=== PATIENT | female | born 1975 | race Caucasian/White ===

== ENCOUNTER 2019-11-04 20:23 | Emergency (ER) | payer MEDICAID ==
[~2019-11-04] VITALS: Ht 167.6 cm; Wt 65.8 kg
[2019-11-04 20:29] VITALS: Ht 167.6 cm; Wt 65.8 kg
[2019-11-04 22:04] VITALS: BP 104/70
== END 2019-11-04 22:36 | disposition home or self-care (01) ==
LOC: ED 20:23
DX: F41.9 Anxiety disorder, unspecified (principal); F32.9 Major depressive disorder, single episode, unspecified; G10 Huntington's disease; Z88.2 Allergy status to sulfonamides; Z98.890 Other specified postprocedural states
CPT/HCPCS: J2060

== ENCOUNTER 2019-12-25 11:53 | Emergency (ER) | payer MEDICAID ==
[~2019-12-25] VITALS: Ht 167.6 cm; Wt 59.0 kg
[2019-12-25 13:01] VITALS: Ht 167.6 cm; Wt 59.0 kg
[2019-12-25 13:46] LABS: BASOPHIL % 0.6 % (0-2)
[2019-12-25 13:48] LABS: PLATELET COUNT 418 x10^3mcL (130-400); RED CELL DISTRIBUTION WIDTH 19.3 % (11.5-14.5)
[2019-12-25 14:24] LABS: CALCIUM 8.7 mg/dL (8.5-10.1); CARBON DIOXIDE 33.1 mmol/L (21-32); CHLORIDE SERUM 101 mmol/L (98-107); CREATININE SERUM 0.7 mg/dL (0.6-1.0); GFR1 > 60 mL/min; GLUCOSE SERUM 90 mg/dL (74-106); POTASSIUM SERUM 3.5 mmol/L (3.5-5.1); SODIUM SERUM 137 mmol/L (136-145)
[2019-12-25 14:28] LABS: ALBUMIN 3.9 g/dL (3.4-5.0); ALKALINE PHOSPHATASE 60 U/L (46-116); ALT/SGPT 19 U/L (14-59); AST/SGOT 17 U/L (15-37); BILIRUBIN TOTAL 0.37 mg/dL (0.20-1.00)
[2019-12-25 14:30] LABS: AMPHETAMINE QUAL UR NONE DETECTED (See below)
[2019-12-25 15:08] VITALS: BP 137/93
== END 2019-12-25 15:08 | disposition home or self-care (01) ==
LOC: ED 11:53
PROVIDERS: Emergency Medicine
DX: F41.9 Anxiety disorder, unspecified (principal); D64.9 Anemia, unspecified; Z02.79 Encounter for issue of other medical certificate; Z20.828 Contact with and (suspected) exposure to other viral communicable diseases; Z98.890 Other specified postprocedural states; Z88.2 Allergy status to sulfonamides
CPT/HCPCS: G0480; U0003-CS

== ENCOUNTER 2020-06-08 13:24 | Inpatient (IN) | payer OTHER ==
[~2020-06-08] VITALS: Ht 175.3 cm; Wt 51.9 kg
[2020-06-08 13:25] VITALS: Ht 175.3 cm; Wt 51.9 kg
--- NOTE | 2020-06-08 13:27 | NUR ---
PT BIBA [facility] AND [facility] D/T POSSIBLE OVERDOSE. PER PD, PT WAS HAVING AN ARGUMENT WITH FAMILY ABOUT HER PLACEMENT IN A SNF D/T HER BARRY'S DISEASE. PT STATED "I MIGHT WELL " AND LOCKED HERSELF IN HER ROOM. FAMILY MEMBERS HEARD PILLS BEING INGESTED. THE DOOR WAS KNOCKED DOWN AND FOUND AN OPEN, EMPTY BOTTLE OF LEXAPRO. FAMILY DOES NOT KNOW HOW MUCH LEXAPRO PILLS THE PT INGESTED. PT ARRIVED TO ED ALERTED, UNCOOPERATIVE, AND ONLY ALERT TO SELF, GCS10. PT APPEARED ANXIOUS AND MOANING INCOMPREHENSIBLE WORDS. PT WAS WRITHING ALL OVER THE GURNEY. NOTED PT TO BE TACHYCARDIC. RESPIRATIONS WNL AND E/U.
--- NOTE | 2020-06-08 13:30 | NUR ---
PT PLACED ON RESTRAINTS X4 EXTREMITIES D/T ANXIETY, ALOC, AT RISK FOR FALLS. PT ATTEMPTING TO CLIMB OVER GURNEY RAILS. PT ONLY ALERT TO SELF, GCS10
--- NOTE | 2020-06-08 13:46 | NUR ---
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 5150 FOR DTS WRITTEN AT BEDSIDE. MD MULLER
--- NOTE | 2020-06-08 14:01 | NUR ---
CONTACTED POISON CONTROL. PER VELMA, MINIMUM OBSERVATION TIME IS 12HRS. 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 OK TO GIVE BENZODIAZEPINES FOR AGITATION.
[2020-06-08 14:33] LABS: microscopic required? NO
[2020-06-08 14:59] LABS: urine erythrocyte NEGATIVE (NEGATIVE)
[2020-06-08 15:03] LABS: BASOPHIL % 0.8 % (0.2-1.3); PLATELET COUNT 233 x10^3mcL (179-408)
[2020-06-08 15:10] LABS: RED CELL DISTRIBUTION WIDTH 20.4 % (12.3-17.7)
[2020-06-08 15:29] LABS: AMPHETAMINE QUAL UR NONE DETECTED (See below)
--- NOTE | 2020-06-08 15:31 | NUR ---
O2 SATURATION CONTINUES TO STAY IN HIGH 80'S, INCREASED O2 TO 5L VIA NC
[2020-06-08 15:32] LABS: ALBUMIN 3.6 g/dL (3.4-5.0); ALKALINE PHOSPHATASE 72 U/L (46-116); ALT/SGPT 79 U/L (14-59); AST/SGOT 34 U/L (15-37); BILIRUBIN TOTAL 0.5 mg/dL (0.20-1.00); CALCIUM 8.9 mg/dL (8.5-10.1); CARBON DIOXIDE 26.5 mmol/L (21-32); CHLORIDE SERUM 103 mmol/L (98-107); CREATININE SERUM 0.8 mg/dL (0.6-1.0); GFR1 > 60 mL/min; GLUCOSE SERUM 124 mg/dL (74-106); POTASSIUM SERUM 3.4 mmol/L (3.5-5.1); SODIUM SERUM 140 mmol/L (136-145); TOTAL PROTEIN, SERUM 7.2 g/dL (6.4-8.2)
--- NOTE | 2020-06-08 15:46 | NUR ---
PT ASLEEP, COOPERATIVE, RESP EU, IN NO ACUTE DISTRESS. TIFFANIE LOWER EXTREMITIES RESTRAINTS REMOVED.
--- NOTE | 2020-06-08 17:25 | NUR ---
RESTRAINTS PLACED BACK ON BILATERAL LOWER EXTREMITIES D/T PT STARTING TO BECOME RESTLESS AND SLAMMING HER LEGS AGAINST THE BED RAILS. PT MENTATION IS UNCHANGED. PT MOANS TO VERBAL STIMULI
--- NOTE | 2020-06-08 19:15 | NUR ---
REPORT RECEIVED FROM RAJAN FARLEY TO ASSUME CARE FOR PT AT THIS TIME
--- NOTE | 2020-06-08 20:17 | NUR ---
PT IN GURNEY RESTING, EASY TO AROUSE. PT CONTINUES TO BE AGITATED, SITTING UP IN BED WITH RESTRAINTS STILL IN PLACE. PT ACTIVELY WRITHING IN BED AND TRYING TO GET OUT OF RESTRAINTS AND FALLING IN AND OUT OF SLEEP. PT TOLERATED ROCEPHIN INFUSION INTIATION WELL AND IS IN GURNEY RESTING. PT RESP E/U, SIDE RAILSX2, IN FULL VIEW OF NURSES STATION, AND BED IN LOWEST POSITION FOR SAFETY
--- NOTE | 2020-06-08 21:13 | NUR ---
PT IN [facility], ATTEMPTING TO SIT UP WITH RESTRAINTS ON, GRUNTING AND SHOUTING INTERMITTENTLY. AZITHROMAX INFUSION STARTED, PT TOLERATED WELL. PT IN [facility] RESTING, RESP E/U, IN AND OUT OF SLEEP. +PMSC ON ALL EXTREMITIES. PT DOES NOT RESPOND WHEN GREETED OR ASKING IF SHE NEEDS ANYTHING. PT IN [facility] AT LOWEST POSITION AND SIDE RAILS FOR SAFETY
--- NOTE | 2020-06-08 21:42 | NUR ---
MD BEING PAGED AT THIS TIME TO GET ORDER FOR INHALER CORRECTED FOR [facility] IS AVAILABLE TO VERIFY WELL GET ADDITIONAL ORDER FOR AGITATION FOR THE PT. PT HAS BEEN AGITATED AND WRESTING AROUND IN RESTRAINTS.
--- NOTE | 2020-06-08 21:50 | NUR ---
SPOKE WITH AND MD WHITE THAT HE WILL PUT IN THE ORDER FOR ALBUTEROL INCLUDING THE FREQUENCY AND ADD A PRN ORDER FOR PT AGITATION.
--- NOTE | 2020-06-08 21:55 | NUR ---
PT CONTINUES TO WRITHE IN BED GRUNTING AND YELLING INTERMITTENTLY. PT OCCLUDING INFUSION WHEN ATTEMPTING TO GET UP WITH HER RESTRAINTS ON, PT EDUCATED TO KEEP ARM STRAIGHT FOR AZITHROMAX TO INFUSE, BUT PT DOES NOT ANSWER. PT BED IN LOWEST POSITION, AND SIDE RAILSX2 FOR SAFETY. PT RESP E/U, AND NOT IN ACUTE DISTRESS
--- NOTE | 2020-06-08 23:15 | NUR ---
SPOKE WITH CHI FROM POISON CONTROL FOLLOWING UP ON PT STATUS. CHI STATES BIGGEST CONCERN FOR LEXAPRO OVERDOSE IS DELAYED QT PROLONGATION. STATES SHOULD KEEP PT FOR AT LEAST 12 HRS FOR OBSERVATION. CHI STATES IF PT VITALS SIGNS REMAINS STABLE AND EKG CONTINUES TO HAVE NO QT PROLONGATION PT WILL BE SAFE FROM DANGERS OF OVERDOSE. WILL CONTINUE TO MONITOR TO PT.
--- NOTE | 2020-06-08 23:47 | NUR ---
PT SEEN RITHING AROUND IN RESTRRAINTS PT WAS REORIENTED AND ASKED TO LAY BACK IN BED. PT LAYED BACK DOWN IN BED AND IS NOW RESTING LAYING SUPINE IN SEMI FOWLERS. WILL CONTINUE TO MONITOR PT.
--- NOTE | 2020-06-09 00:16 | NUR ---
PT IS SEEN ATTEMPTING TO SIT UP WHILE ON RESTRAINTS AND MOVING AROUND, FALLING IN AND OUT OF SLEEP. PT IN FULL VIEW OF NURSES STATION, RESP E/U, SIDE RAILSX2 AND GURNEY IN LOWEST POSITION FOR SAFETY
--- NOTE | 2020-06-09 00:31 | NUR ---
PT ASKED IF SHE'D LIKE HER PRN ORDER FOR ATIVAN. PT DECLINED.
--- NOTE | 2020-06-09 01:51 | NUR ---
PT CONTINUES TO TRY AND GET OUT OF HER RESTRAINTS INTERMITTENTLY AND FALLS IN AND OUT OF SLEEP. WILL CONTINUE TO WATCH PT AND ASSESS RESTRAINT NECESSITY
--- NOTE | 2020-06-09 03:29 | NUR ---
0327 VITAL SIGN INPUTTED BY ME, NOT JUSTINE FARLEY
--- NOTE | 2020-06-09 03:44 | NUR ---
PT IN GURNEY RESTING, EASY TO AROUSE. INFORMED PT THAT WE WILL REMOVE HER LOWER EXTREMITY RESTRAINTS TO ASSESS HER LEVEL OF COOPERATION AND TO ASSESS IF WE CAN COMPLETELY REMOVE ALL RESTRAINTS FOR PT. PT EXPRESSED UNDERSTANDING. PT NAD NOTED, RESP E/U, SIDE RAILSX2, AND BED IN LOWEST POSITION FOR SAFETY
--- NOTE | 2020-06-09 03:45 | NUR ---
ASKED PT IF SHE WOULD LIKE HER PRN ORDER OF ATIVAN AND THE PT REFUSED ATIVAN AGAIN
--- NOTE | 2020-06-09 03:46 | NUR ---
PT SPEAKING IN UNINTELLIGIBLE WORDS, ATTEMPTING TO MOVE HER ARMS AROUND. PT HAD BEEN KICKING EARLIER TODAY WHEN LOWER EXTREMITY RESTRAINTS WERE RELEASED TO ASSESS PT. SEIZURE PADS PLACED TO PROTECT PT IN THE EVENT THE PT BEGINS KICKING AGAIN.
--- NOTE | 2020-06-09 03:48 | NUR ---
PT BECOMING INCREASINGLY AGITATED AND MOVING AROUND IN BED. CONTINUING TO REMIND PT THAT SHE NEEDS TO LIE IN BED-- PT STOPS WRITHING AND LIES DOWN. AFTER AROUND 1-2 MINUTES, PT BEGINS ATTEMPTING TO MOVE HER ARMS AND SIT UP. PT IS NOT KICKING THE GURNEY RAILS AT THIS TIME. PT RESP E/U, BED IN LOWEST HEIGHT AND SIDE RAILSX2 FOR SAFETY
--- NOTE | 2020-06-09 03:53 | NUR ---
PT OFFERED ATIVAN TO HELP HER ANXIETY AND PT AGREED TO TAKING PO ATIVAN
--- NOTE | 2020-06-09 04:08 | NUR ---
PT IS SITTING UP, STRUGGLING, ATTEMPTING TO GET OUT OF HER RESTRAINTS AND SCREAMING. EIRC RN AT BEDSIDE REMINDING PT THAT SHE NEEDS TO REMAIN IN BED AND REORIENTING PT. PT IN FULL VIEW OF NURSES STATION, BED IN LOWEST POSITION, AND SIDE RAILSX2 FOR SAFETY
--- NOTE | 2020-06-09 04:13 | NUR ---
PT ACTIVELY TRYING TO GET OUT OF BED, YELLING, WITH HER LEGS THROUGH THE GURNEY RAILING. ERIK SCHULTZ AND MYSELF ASSISTED PT BACK TO POSITION OF COMFORT AND REAPPLIED BLE RESTRAINTS FOR SAFETY. PT EXPRESSED UNDERSTANDING AND COOPERATED WITH RESTRAINT APPLICATION. PT IS NOW IN BED RESTING SUPINE, RESP E/U, BED IN LOWEST POSITION, SIDE RAILSX2 FOR SAFETY
--- NOTE | 2020-06-09 05:05 | NUR ---
BILATERAL LEG RESTRAINTS REMOVED FROM PT. PT DECREASED AGITATION AT THIS TIME AND BEING COOPERATIVE. PT LAYING SUPINE IN GURNEY IN A POSITION OF COMFORT WITH EYES CLOSED. WILL CONTINUE TO MONITOR PT.
[2020-06-09 05:17] LABS: BASOPHIL % 0.5 % (0.2-1.3); PLATELET COUNT 227 x10^3mcL (179-408)
[2020-06-09 05:18] LABS: RED CELL DISTRIBUTION WIDTH 21.1 % (12.3-17.7)
--- NOTE | 2020-06-09 05:22 | NUR ---
PT SEEN AGITATED AND RITHING AROUND IN RESTRAINTS IN [facility]. THERAPEUTIC COMMUNICATION IMPLEMENTED AND PT WAS REORIENTED. PT STATED THAT SHE WOULD LIKE SOME SEVEN UP. PT WAS BROUGHT SEVEN UP BUT THEN REFUSED STATING IT TASTES BAD. PT AGREES TO LAY BACK DOWN IN [facility] AND STATED "JUST LET ME SLEEP."
[2020-06-09 05:41] LABS: ALKALINE PHOSPHATASE 68 U/L (46-116); ALT/SGPT 59 U/L (14-59); AST/SGOT 22 U/L (15-37); BILIRUBIN TOTAL 0.5 mg/dL (0.20-1.00); CALCIUM 8.6 mg/dL (8.5-10.1); CHLORIDE SERUM 107 mmol/L (98-107); CREATININE SERUM 0.6 mg/dL (0.6-1.0); GFR1 > 60 mL/min; GLUCOSE SERUM 96 mg/dL (74-106); LIPASE 53 IU/L (73-393); POTASSIUM SERUM 3.5 mmol/L (3.5-5.1); SODIUM SERUM 143 mmol/L (136-145); TOTAL PROTEIN, SERUM 6.3 g/dL (6.4-8.2)
[2020-06-09 05:47] LABS: ALBUMIN 3.1 g/dL (3.4-5.0)
--- NOTE | 2020-06-09 05:57 | NUR ---
ERIC FARLEY AND ERIK SCHULTZ AT BEDSIDE TO ASSIST PT IN PERFORMING ORAL CARE.
--- NOTE | 2020-06-09 05:59 | NUR ---
PT SEEN TRYING TO GET UP IN BED. PT REPORTS SHE WOULD LIKE TO BRUSH HER TEETH. PT WAS ASSISTED IN BRUSHING HER TEETH AT BEDSIDE. PT LAYING BACK DOWN IN SUPINE POSITION IN A POSITION OF COMFORT WITH EYES CLOSED. WILL CONTINUE TO MONITOR PT.
--- NOTE | 2020-06-09 06:55 | NUR ---
PT WAS REQUESTING TO TALK TO HER DAUGHTER. PTS DAUGHTER WAS CONTACTED AND PT WAS GIVEN PHONE TO TALK TO DAUGHTER. PTS DAUGHTER JOSUE STATED THAT HER SISTER BEATA HAS MORE KNOWLEDGE OF PTS MEDICAL HX AND MEDICATIONS TAKEN AT HOME. WILL FOLLOW UP WITH BEATA FOR PT MEDICATION RECONCILIATION.
--- NOTE | 2020-06-09 07:08 | NUR ---
SPOKE WITH DR MANZANO ON THE PHONE AND NOTIFIED HIM THAT SHE IS BECOMING INCREASINGLY AGITATED AND THE PRN ORDER OF XANAX HAS NOT HELPED WITH HER AGITATION. STATED THAT WE CAN PUT IN THE ORDER OF 1MG MORPHINE IVP. WILL PUT IN ORDERS AND MEDICATE ORDERED.
--- NOTE | 2020-06-09 07:15 | NUR ---
REPORT GIVEN TO CARMELO FARLEY TO ASSUME CARE OF THIS PT AT THIS TIME
--- NOTE | 2020-06-09 07:30 | NUR ---
FIRST CONTACT WITH PT. PT STATING "IM FEEL MUCH CALMER NOW. IM NOT FEELING SUICIDAL RIGHT NOW." PT APPEARS CALM AND COOPERATIVE. PT REMAINS IN HARD RESTRAINTS TO BILATERAL WRISTS. PT NOT FIGHTING RESTRAINTS. PTS SPEECH SLIGHTLY SLURRED, PT STATES THAT IS D/T HER [place] DISEASE. ON FULL CM, PULSE OX. SEIZURE PADS IN PLACE AND IN CLEAR VIEW OF NURSES STATION.
--- NOTE | 2020-06-09 08:30 | NUR ---
PT RESTRAINTS REMOVED D/T CONTINUED TO BE COOPERATIVE AND CALM. MORPHINE HELD D/T PT IS NOT AGITATED AND LAYING CALMLY IN BED IN SUPINE POSITION WITH EYES CLOSED . PT VERBALIZED UNDERSTANDING THAT SHE MUST STAY IN BED FOR SAFETY REASONS. HUNTINGTONS CHOREA MOVEMENTS NOTED TO UPPER ARMS IMMEDIATELY AFTER REMOVING RESTRAINTS. REMAINS ON FULL CM, PULSE OX WITH SEIZURE PADS IN PLACE.
--- NOTE | 2020-06-09 08:40 | NUR ---
RECIEVED CALL FROM RICK, POISON CONTROL, AND PROVIDED UPDATE. HE STATED WE ARE 12 HOURS PAST THE PEAK OF THE MEDICATION SHE TOOK AND EXPECTS NO FURTHER ADVERSE EFFECTS FROM HERE. THE ONLY RECOMMENDATION HE HAD WAS TO REPEAT EKG JUST BEFORE DISCHARGE.
--- NOTE | 2020-06-09 09:41 | NUR ---
DR DONNELLY AT BEDSIDE TO SPEAK WITH PT.
--- NOTE | 2020-06-09 09:42 | NUR ---
SPOKE WITH FAMILY. THEY STATED THEY DO NOT WANT THE PT TO RETURN HOME D/T THIS SUICIDE ATTEMPT AND PREVIOUS STRUGGLE WITH [place] DISEASE. STATES HE WILL WORK WITH CASE MANAGEMENT TO FIND PLACEMENT FOR THE PT AT A [facility] DIS[facility]ASE. ALSO STATED HE WILL CONTACT PSYCHIATRIST FOR A REEVALUATION OF HER 5150 HOLD.
--- NOTE | 2020-06-09 09:45 | NUR ---
PT GIVEN BREAKFAST TRAY. PT APPEARS CALM AND COOPERATIVE. STATES SHE IS ABLE TO EAT ON HER OWN. REMAINS IN CLEAR VIEW OF NURSES STATION.
--- NOTE | 2020-06-09 11:52 | NUR ---
PT LAYING COMFORTABLY IN BED. AWAKE, ALERT, RESP E/U WITH NAD NOTED. DENIES PAIN AND HAS NO COMPLAINTS AT THIS TIME.
--- NOTE | 2020-06-09 12:35 | NUR ---
PT ATTEMPTED TO GET OUT OF BED STATING "I WANT TO SIGN OUT AMA. I WANT TO GO HOME ALREADY." EXPLAINED 515O HOLD AND NEED TO PSYCH CONSULT IN ORDER TO LEAVE. PT BEGAN GETTING UPSET STATING "I CAN JUST TALK TO MY PSYCHOLOGIST WHEN I GET HOME. I DONT NEED TO BE HERE." REORIENTED PT AND STATED THAT WAS NOT POSSIBLE AT THIS TIME. PT UNDERSTOOD AND ABLE TO GET BACK INTO BED. PAGED.
--- NOTE | 2020-06-09 13:14 | NUR ---
PT WAS SEEN GETTING UP FROM [facility]. ASSISTED PT BACK TO [facility] WITH MARTINE RHODES. PT STATED SHE JUST WANTED HER SODA. PLACED SODA ON PT'S TRAY PER PT REQUEST. PT EATING LUNCH AT THIS TIME.
--- NOTE | 2020-06-09 16:15 | NUR ---
DR CHILDS AT BEDSIDE SPEAKING WITH PT. HE STATES HE WILL KEEP THE 5150 HOLD ON PT D/T SUICIDE ATTEMPT WAS SIGNIFICANT AND HE BELIEVES PT SHOULD CONTINUED TO BE MONITORED. I REPORTED PT INTERMITTENTLY BECOMES AGITATED AND ATTEMPTS TO GET OUT OF BED. HE STATED HE WILL PLACE A PRN ORDER FOR ATIVAN.
--- NOTE | 2020-06-09 17:36 | NUR ---
PT IS A&OX4 AND SPEAKING IN FULL CLEAR SENTENCES. PT DENIES FEELING SI AT THIS TIME AND STATES SHE DID IT FOR HER DAUGHTER'S ATTENTION. LUNGS CTA, RESPS E/U AND PT NOTED TO HAVE NSR. PT IS LAYING IN POSITION OF COMFORT AND SEIZURE PRECAUTIONS AND SEIZURE PADS ARE IN PLACE. IV TO LAC IS PATENT, NO INFILTRATION OR REDNESS NOTED. PT HAS A EPSTEIN CATHETER AND 100ML OF CLEAR DARK YELLOW URINE FOR OUTPUT. SKIN IS INTACT AND +PMSC. PT HAS HX OF [place] DISEASE AND NOTED TO HAVE INVOLUNTARY MOVEMENT OF LIMBS. PT IS ON A 5150 HOLD AT THIS TIME. PT DOES NOT APPEAR TO BE IN ACUTE DISTRESS AT THIS TIME, WILL CONT TO MONITOR.
--- NOTE | 2020-06-09 17:50 | NUR ---
PT GIVEN DINNER TRAY. PT STATES SHE IS ABLE TO EAT INDEPENDENTLY
--- NOTE | 2020-06-09 18:21 | NUR ---
PT ATE 100% OF MEAL. PT NOTED TO BE STANDING AT BEDSIDE. SHE STATED BED WAS WET. LINENS CHANGED AND PT GIVEN NEW GOWN. PT APPEARS COMFORTABLE. CURRENTLY CALM AND COOPERATIVE. AWAKE, ALERT, RESP E/U WITH NAD NOTED. REMAINS IN CLEAR VIEW OF NURSES STATION
--- NOTE | 2020-06-09 18:59 | NUR ---
PT IS COMPLAINING SHE IS SLIGHTLY ANXIOUS AND WOULD LIKE SOME MEDICATION FOR TO HELP HER FALL ASLEEP. PT MEDICATED PER PRN ORDER. LIGHTS TURNED OFF FOR COMFORT.
--- NOTE | 2020-06-09 19:16 | NUR ---
REPORT RECEIVED FROM CARMELO FARLEY TO ASSUME PT CARE
--- NOTE | 2020-06-09 21:32 | NUR ---
PT GIVEN WATER PER REQUEST
--- NOTE | 2020-06-09 22:29 | NUR ---
PT APPEARS TO BE ASLEEP IN BED WITH EQUAL CHEST RISE AND FALL NOTED. PT DOES NOT APPEAR TO BE IN ACUTE DISTRESS AT THIS TIME. WILL CONT TO MONITOR
--- NOTE | 2020-06-09 23:15 | NUR ---
PT IS ALERT AND ABLE TO VERBALIZE NEEDS. PT DOES NOT APPEAR TO BE IN ACUTE DISTRESS AT THIS TIME WILL CONT TO MONITOR
--- NOTE | 2020-06-10 00:10 | NUR ---
PT APPEARS TO BE ASLEEP IN BED, EQUAL CHEST RISE AND FALL NOTED. PT DOES NOT APPEAR TO BE IN ACUTE DISTRESS AT THIS TIME. WILL CONT TO MONIOTR
--- NOTE | 2020-06-10 01:44 | NUR ---
PT APPEARS TO BE ASLEEP IN BED WITH EQUAL CHEST RISE AND FALL NOTED. PT IS IN VIEW OF THE NURSES STATION. PT DOES NOT APPEAR TO BE IN ACUTE DISTRESS AT THIS TIME, WILL CONT TO MONITOR
--- NOTE | 2020-06-10 02:48 | NUR ---
PT APPEARS TO BE SLEEPING WITH EQUAL CHEST RISE AND FALL NOTED. PT NOTED TO HAVE NSR AND DOES NOT APPEAR TO BE IN ACUTE DISTRESS AT THIS TIME. WILL CONT TO MONITOR
--- NOTE | 2020-06-10 03:26 | NUR ---
PT APPEARS TO BE ASLEEP AND ON FULL CM WITH NSR NOTED. PT IN VIEW OF NURSES STATION. NO ACUTE DISTRESS AT THIS TIME. WILL CONT TO MONITOR
--- NOTE | 2020-06-10 05:02 | NUR ---
LAB DRAW COMPLETED BY MYSELF.
[2020-06-10 05:35] LABS: BASOPHIL % 0.8 % (0.2-1.3); PLATELET COUNT 251 x10^3mcL (179-408)
[2020-06-10 05:46] LABS: RED CELL DISTRIBUTION WIDTH 21.2 % (12.3-17.7)
[2020-06-10 05:48] LABS: ALKALINE PHOSPHATASE 69 U/L (46-116); ALT/SGPT 49 U/L (14-59); AST/SGOT 19 U/L (15-37); BILIRUBIN TOTAL 0.36 mg/dL (0.20-1.00); CHLORIDE SERUM 105 mmol/L (98-107); CREATININE SERUM 0.6 mg/dL (0.6-1.0); GFR1 > 60 mL/min; GLUCOSE SERUM 88 mg/dL (74-106); LIPASE 56 IU/L (73-393); POTASSIUM SERUM 3.7 mmol/L (3.5-5.1); SODIUM SERUM 143 mmol/L (136-145); TOTAL PROTEIN, SERUM 6.8 g/dL (6.4-8.2)
[2020-06-10 05:49] LABS: ALBUMIN 3.1 g/dL (3.4-5.0)
--- NOTE | 2020-06-10 06:16 | NUR ---
PT APPEARS TO BE ASLEEP AND HAS EQUAL CHEST RISE AND FALL. NAD NOTED AT THIS TIME WILL CONT TO MONITOR
--- NOTE | 2020-06-10 07:34 | NUR ---
PT GIVEN BREAKFAST TRAY
--- NOTE | 2020-06-10 09:35 | NUR ---
BREAKFAST TRAY TAKEN. ATE FAIRLY WELL. SKIN DRY. COOPERATIVE
--- NOTE | 2020-06-10 10:01 | NUR ---
PT REMARKED SHE FELT "ANXIOUS", MEDICATED WITH XANAX ORDERED
--- NOTE | 2020-06-10 10:37 | NUR ---
OBSERVED SLEEPING QUIETLY AT THIS TIME, SINCE MEDICATED WITH XANAX
--- NOTE | 2020-06-10 12:05 | NUR ---
LUNCH TAKEN WELL. STILL NO MAJOR CHANGES IN CONDITION
--- NOTE | 2020-06-10 14:15 | NUR ---
OBSERVED NAPPING QUIETLY AT THIS TIME
--- NOTE | 2020-06-10 15:05 | NUR ---
AWAKE, ALERT. REQUESTING TYLENOL FOR HEAD ACHE
--- NOTE | 2020-06-10 16:08 | NUR ---
OBSERVED AT THIS TIME. AWAKE, WATCHING T.V.
--- NOTE | 2020-06-10 17:13 | NUR ---
DINNER SERVED AT THIS TIME. PT CONTINUES WATCHING T.V. NO ACUTE DISTRESS NOTICED.
--- NOTE | 2020-06-10 18:19 | NUR ---
CONTINUES TO WATCH T.V. ALERT. COOPERATIVE. LUNGS ASSESSED. CLEAR ANTERIORLY TO AUSCULTATION. SKIN DRY. RESPS NON LABORED.
--- NOTE | 2020-06-10 19:22 | NUR ---
REPORT PASSED ON TO MARTINE REYES ON BUYING AGENT WHO WILL CONTINUE CARE. PT CONTINUES WATCHING T.V.
--- NOTE | 2020-06-10 19:58 | NUR ---
PT LAYING SUPINE IN GURNEY IN A POSITION OF COMFORT. PT AAO X4 RESPIRATIONS E/U NO DISTRESS NOTED. PT VERBALIZES NO THOUGHTS OF HARMING SELF OR OTHERS AT THIS TIME. PT REQUESTED SOME IBIS CRACKERS AT THIS TIME THAT WERE PROVIDED FOR HER. PT COOPERATIVE AND REMAINS CONNECTED TO FULL CM.
--- NOTE | 2020-06-10 20:43 | NUR ---
AZITHROMYCIN IV MEDICATION STARTED AT THIS TIME. EMAR IS BLOCKING ME FROM FINSIHING DOCUMENTATION AT THIS TIME.
--- NOTE | 2020-06-10 20:50 | NUR ---
PT MEDICATED WITH XANAX PER EMAR AT THIS TIME.
--- NOTE | 2020-06-10 22:46 | NUR ---
PT LAYING SUPINE IN GURNEY IN A POSITION OF COMFORT. WITH EYES CLOSED. PT RESPIRATIONS E/U NO DISTRESS NOTED. PT REMAINS CONNECTED TO FULL CM WILL CONTINUE TO MONITOR.
--- NOTE | 2020-06-11 02:07 | NUR ---
PT LAYING SUPINE IN GURNEY WITH EYES CLOSED IN A POSITION OF COMFORT. PT RESPIRATIONS E/U NO DISTRESS NOTED. WILL CONTINUE TO MONITOR.
--- NOTE | 2020-06-11 06:33 | NUR ---
PT LAYING SUPINE IN GURNEY IN A POSITION OF COMFORT. PT AAO X4 RESPIRATIONS E/U NO DISTRESS NOTED. PT ASKING FOR BREAKFAST AND SAID SHE CAN WAIT UNTIL HER BREAKFAST TRAY ARRIVES.
--- NOTE | 2020-06-11 06:58 | NUR ---
PT O2 SAT SEEN FALLING BELOW EXPECTED RANGE. PT WAS PLACED ON 2L VIA NC AND OXYGEN SATURTATION RETURNED TO EXPECTED RANGE AT 98%.
--- NOTE | 2020-06-11 07:13 | NUR ---
GAVE REPORT TO SOFI FARLEY TO ASSUME CARE OF PT.
--- NOTE | 2020-06-11 07:15 | NUR ---
REPORT RECIEVED FROM MARTINE REYES. I WILL ASSUME FURTHER CARE OF THIS PT
--- NOTE | 2020-06-11 07:28 | NUR ---
PT GIVEN BREAKFAST TRAY AT THIS TIME
--- NOTE | 2020-06-11 08:23 | NUR ---
PT AWAKE, SITTING UP [place] AT THIS TIME. PT NOTED TO HAVE SPASTIC MOVEMENTS AT THIS TIME. WHEN ASKED HOW PT IS FEELING TODAY, PT RESPONDS "I FEEL GOOD BUT IM ANXIOUS". PT DENIES ANY PAIN AT THIS TIME. PT REMAINS IN FULL VIEW OF NURSING STATION, SI/HI PRECAUTIONS IN PLACE. WILL CONTINUE TO MONITOR
--- NOTE | 2020-06-11 09:36 | NUR ---
PT AWAKE, WATCHING TV IN [facility] [place]. PT APPEARS CALM AND COOPERATIVE, NO DISTRESS NOTED. PT AAOX4, RESP E/U. SAFETY PRECAUTIONS IN PLACE. PT IN FULL VIEW OF NURSING STATION.
--- NOTE | 2020-06-11 11:07 | NUR ---
POWER TRANSFORMER ASSEMBLER PAGED REGARDING PT 5150 HOLD EXPIRING THIS AFTERNOON
--- NOTE | 2020-06-11 11:30 | NUR ---
SPOKE TO DR NEWMAN REGARDING PT 5150 HOLD EXPIRING THIS AFTERNOON. PER DR NEWMAN, HE WILL BE HERE THIS AFTERNOON TO SEE PT.
[2020-06-11 11:48] LABS: BASOPHIL % 0.5 % (0.2-1.3); PLATELET COUNT 317 x10^3mcL (179-408)
[2020-06-11 12:01] LABS: RED CELL DISTRIBUTION WIDTH 21.3 % (12.3-17.7)
--- NOTE | 2020-06-11 12:01 | NUR ---
PT AWAKE, WATCHING TV IN [facility] [place]. PT AAOX4, CALM AND COOPERATIVE. PT DENIES ANY PAIN, SI/HI AT THIS TIME. RESP E/U, PT REMAINS ON 2L O2 VIA NASAL CANNULA, O2SAT 95%. PT REMAINS IN FULL VIEW OF NURSING STATION, SAFETY PRECAUTIONS IN PLACE. WILL CONTINUE TO MONITOR
[2020-06-11 13:07] LABS: ALBUMIN 3.5 g/dL (3.4-5.0); ALKALINE PHOSPHATASE 75 U/L (46-116); ALT/SGPT 50 U/L (14-59); AST/SGOT 23 U/L (15-37); BILIRUBIN TOTAL 0.36 mg/dL (0.20-1.00); CARBON DIOXIDE 29.5 mmol/L (21-32); CHLORIDE SERUM 104 mmol/L (98-107); CREATININE SERUM 0.6 mg/dL (0.6-1.0); GFR1 > 60 mL/min; GLUCOSE SERUM 79 mg/dL (74-106); POTASSIUM SERUM 4.3 mmol/L (3.5-5.1); SODIUM SERUM 143 mmol/L (136-145); TOTAL PROTEIN, SERUM 7.5 g/dL (6.4-8.2)
--- NOTE | 2020-06-11 13:19 | NUR ---
PT AWAKE, SITTING UP IN [place] AT THIS TIME. PT STATES SHE NEEDS TO USE THE RESTROOM FOR BOWEL MOVEMENT. PT AMBULATES WITH SHUFFLED GAIT TO RESTROOM AND BACK. EPSTEIN CATHETER REMAINS IN PLACE, CLEAR YELLOW URINE NOTED TO BAG. PT AAOX4, RESP E/U, O2SAT 95% ON ROOM AIR. PT DENIES ANY PAIN AT THIS TIME. SI/HI PRECAUTIONS REMAIN IN PLACE. PT IN FULL VIEW OF NURSING STATION
--- NOTE | 2020-06-11 13:56 | NUR ---
PT STATES "I THINK I HAVE A YEAST INFECTION FROM THE ANTIBIOTICS. IT NORMALLY HAPPENS WHEN I TAKE THEM". PT REPORTS VAGINAL ITCHINESS AND "A LOT OF DISCHARGE". PT DENIES ODOR TO DISCHARGE. PT STATES "IT JUST ITCHES". WILL MAKE MD AWARE
--- NOTE | 2020-06-11 14:17 | NUR ---
PT KNOCKED DOWN HER LUNCH TRAY FROM [place]. PT STATED SHE WAS DONE WITH HER FOOD ALREADY. PT LAYING IN POSITION OF COMFORT, NO ACUTE DISTRESS NOTED.
--- NOTE | 2020-06-11 15:27 | NUR ---
PT LAYING IN POSITION OF COMFORT IN ER [facility] WATCHING TV. PT DENIES ANY PAIN OR SOB AT THIS TIME. PT AAOX4, RESP E/U, NO DISTRESS NOTED. SI/HI PRECAUTIONS REMAIN IN PLACE
--- NOTE | 2020-06-11 16:02 | NUR ---
DR NEWMAN AT BEDSIDE. PER DR NEWMAN, HE WILL PUT IN ORDER FOR PSYCH CONSULT REGARDING PT [address] NEWMAN OF PT VAGINAL DISCHARGE AND ITCHINESS. PER DR NEWMAN, HE WILL PUT IN ORDERS
--- NOTE | 2020-06-11 17:52 | NUR ---
PT GIVEN DINNER TRAY AT THIS TIME
--- NOTE | 2020-06-11 17:57 | NUR ---
DR CHILDS AT BEDSIDE
--- NOTE | 2020-06-11 18:19 | NUR ---
PT AMBULATED TO RESTROOM AND BACK WITH SHUFFLED GAIT FOR BOWEL MOVEMENT. 1000CC CLEAR, DARK YELLOW URINE EMPTIED FROM EPSTEIN BAG. PT FINISHED 100% BREAKFAST, LUNCH AND DINNER TRAY.
--- NOTE | 2020-06-11 18:20 | NUR ---
PT STATES "IM FEELING ANXIOUS AGAIN". PT AAOX4, RESP E/U, NO DISTRESS NOTED. PT DENIES ANY SI/HI AT THIS TIME. PT DENIES ANY PAIN. SI/HI PRECAUTIONS REMAIN IN PLACE. PT IN FULL VIEW OF NURSING STATION.
--- NOTE | 2020-06-11 19:14 | NUR ---
REPORT GIVEN TO MARTINE VILLEDA. SHE WILL ASSUME FURTHER CARE OF THIS PT
--- NOTE | 2020-06-11 19:37 | NUR ---
RECEIVED REPORT FROM SOFI FARLEY. PT NOTED AWAKE IN GURNEY, NO ACUTE DISTRESS NOTED. BREATHING EVEN AND UNLABORED. PT VERBALLY RESPONSIVE. GURNEY IN LOWEST POSITION. SAFETY MEASURES IN PLACE. CURTAIN REMAINS OPEN AND PT VISIBLE FROM NURSES STATION. NO APPARENT CHANGES AT THIS TIME.
--- NOTE | 2020-06-11 20:30 | NUR ---
PT AWAKE IN [place], NO ACUTE DISTRESS NOTED. BREATHING EVEN AND UNLABORED. PT DENIES PAIN AT THIS TIME. PT VERBALLY RESPONSIVE AND SPEAKING CLEAR AND FULL SENTENCES. NO APPARENT CHANGES AT THIS TIME.
--- NOTE | 2020-06-11 21:40 | NUR ---
PT AWAKE IN GURNEY, NO ACUTE DISTRESS NOTED. BREATHING EVEN AND UNLABORED. PT WATCHING TV AT THIS TIME AND DENIES ANY PAIN OR DISCOMFORT. GURNEY IN LOWEST POSITION. SAFETY MEASURES IN PLACE. CURTAIN REMAINS OPEN AND PT VISIBLE FROM NURSES STATION. CALL LIGHT REMAINS WITHIN REACH. NO APPARENT CHANGES AT THIS TIME.
--- NOTE | 2020-06-11 22:49 | NUR ---
PT AWAKE IN GURNEY, NO ACUTE DISTRESS NOTED. BREATHING EVEN AND UNLABORED. PT VERBALLY RESPONSIVE, SPEAKS CLEAR AND FULL SENTNENCES. PT DENIES ANY PAIN OR DISCOMFORT AT THIS TIME. GURNEY IN LOWEST POSITION AND SAFETY MEASURES IN PLACE. CURTAIN REMAINS OPEN AND PT REMAINS VISIBLE FROM NURSES STATION. NO APPARENT CHANGES AT THIS TIME.
--- NOTE | 2020-06-11 23:34 | NUR ---
PT RESTING IN GURNEY, NO ACUTE DISTRESS NOTED. BREATHING EVEN AND UNLABORED. PT DENIES ANY PAIN OR DISCOMFORT AT THIS TIME. SAFETY MEASURES IN PLACE. GURNEY IN LOWEST POSITION. CURTAIN REMAINS OPEN, PT VISIBLE FROM NURSES STATION. NO APPARENT CHANGES AT THIS TIME.
--- NOTE | 2020-06-12 00:39 | NUR ---
PT RESTING IN GURNEY, NO ACUTE DISTRESS NOTED. BREATHING EVEN AND UNLABORED. PT DENIES ANY PAIN OR DISCOMFORT AT THIS TIME. SAFETY MEASURES IN PLACE. GUREY IN LOWEST POSITION. CURTAIN REMAINS OPEN AND PT VISIBLE FROM NURSES STATION. NO APPARENT CHANGES NOTED AT THIS TIME.
--- NOTE | 2020-06-12 01:51 | NUR ---
PT RESTING IN GURNEY, NO ACUTE DISTRESS NOTED. BREATHING EVEN AND UNLABORED. PT EASILY ARROU[place]ALE AND DENIES ANY PAIN OR DISCOMFORT AT THIS TIME. PT SPEAKS CLEAR AND FULL SENTENCES. O2 MONITOR IN PLACE. SAFETY MEASURES IN PLACE AND GURNEY IN LOWEST POSTIION. CURTAINS REMAIN OPEN AND PT VISIBLE FROM NURSES STATION. NO APPARENT CHANGES AT THIS TIME.
--- NOTE | 2020-06-12 02:50 | NUR ---
PT RESTING IN GURNEY, NO ACUTE DISTRESS NOTED. BREATHING EVEN AND UNLABORED. O2 MONITOR AND BP CUFF IN PLACE. GURNEY IN LOWEST POSITION. SAFETY MEASURES IN PLACE. CURTAIN REMAINS OPEN AND PT VISIBLE FROM NURSES STATION. CALL LIGHT WITHIN REACH. NO APPARENT CHANGES AT THIS TIME.
--- NOTE | 2020-06-12 03:35 | NUR ---
PT RESTING IN POSITION OF COMFORT IN GURNEY. NO ACUTE DISTRESS NOTED. BREATHING EVEN AND UNLABORED. O2 MONITOR AND BP CUFF IN PLACE. GURNEY IN LOWEST POSITION. SAFETY MEASURES IN PLACE. CURTAINS REMAIN OPEN AND PT VISIBLE FROM NURSES STATION. NO APPARENT CHANGES AT THIS TIME.
--- NOTE | 2020-06-12 04:36 | NUR ---
PT RESTING IN [facility]. NO ACUTE DISTRESS NOTED. BREATHING EVEN AND UNLABORED. SAFETY MEASURES IN PLACE. O2 MONITOR AND BP MONITOR IN PLACE. CURTAIN REMAINS OPEN, PT VISIBLE FROM NURSES STATION. NO APPARENT CHANGES AT THIS TIME.
--- NOTE | 2020-06-12 05:37 | NUR ---
PT REQUESTING TO AMBULATE TO RESTROOM FOR BM. PT AMBULATED TO BATHROOM WITH STEADY GAIT, I REMAINED OUTSIDE OF DOOR FOR SAFETY PRECAUTIONS. PT BACK IN GURNEY, NO ACUTE DISTRESS NOTED. BREATHING EVEN AND UNLABORED. SAFETY MEASURES IN PLACE. O2 MONITOR AND BP MONITOR PLACED BACK ON PT. PT DENIES ANY PAIN OR DISCOMFORT. GURNEY IN LOWEST POSITION. CURTAIN REMAINS OPEN AND PT VISIBLE FROM NURSES STATION. NO APPARENT CHANGES AT THIS TIME.
[2020-06-12 06:00] LABS: ALBUMIN 3.4 g/dL (3.4-5.0); ALKALINE PHOSPHATASE 76 U/L (46-116); ALT/SGPT 49 U/L (14-59); AST/SGOT 28 U/L (15-37); BASOPHIL % 0.8 % (0.2-1.3); BILIRUBIN TOTAL 0.47 mg/dL (0.20-1.00); CALCIUM 9.1 mg/dL (8.5-10.1); CARBON DIOXIDE 29.4 mmol/L (21-32); CHLORIDE SERUM 106 mmol/L (98-107); CREATININE SERUM 0.7 mg/dL (0.6-1.0); GFR1 > 60 mL/min; GLUCOSE SERUM 92 mg/dL (74-106); PLATELET COUNT 299 x10^3mcL (179-408); POTASSIUM SERUM 4.3 mmol/L (3.5-5.1); SODIUM SERUM 142 mmol/L (136-145); TOTAL PROTEIN, SERUM 7.5 g/dL (6.4-8.2)
[2020-06-12 06:13] LABS: RED CELL DISTRIBUTION WIDTH 21.1 % (12.3-17.7)
--- NOTE | 2020-06-12 06:50 | NUR ---
PT AWAKE IN GURNEY, NO ACUTE DISTRESS NOTED. BREATHING EVEN AND UNLABORED. PT DENIES ANY PAIN OR DISCOMFORT AT THIS TIME. PT REPORTED FEELING ANXIOUS, XANAX ADMINISTERED, REFER TO EMAR. SAFETY MEASURES IN PLACE. GURNEY IN LOWEST POSITION. CURTAINS REMAIN OPEN, PT VISIBLE FROM NURSES STATION. NO APPARENT CHNAGES AT THIS TIME.
--- NOTE | 2020-06-12 07:07 | NUR ---
RECEIVED REPORT FROM CHRISTIANA FARLEY, I WILL ASSUME FURTHER CARE OF THIS PATIENT.
--- NOTE | 2020-06-12 07:16 | NUR ---
REPORT GIVEN TO ZULLY FARLEY, SHE WILL ASSUME CARE OF PT
--- NOTE | 2020-06-12 07:45 | NUR ---
PT NOTED EATING BREAKFAST, ATE 100% AND 60ML. PT NOTED WITH INVOLUNTARY MOVEMENTS, PT REPORTED HER MOVEMENTS ARE DUE TO HER "BARRY'S DISEASE." PT DENIES ANY SI/HI, AND HAS NO PLAN. PT HAS BEEN MEDICALLY CLEARED AND IS NOT ON A 5150 CURRENTLY. PT IS AAOX4, NO DISTRESS NOTED, RESP E/U, HEALING ABRASION NOTED TO HER LEFT ELBOW, 24 G IV NOTED TO L HAND, FLUSHED AND PATENT. VSS, PT IN VIEW OF THE NURSE STATION, SI PRECUATIONS IN PLACE. PT GIVEN SUPPLIES FOR ORAL HYGIENE AND A NEW GOWN TO WEAR. WILL CONT TO MONITOR.
--- NOTE | 2020-06-12 12:23 | NUR ---
SPOKE TO YUE IN CASE MANAGEMENT, SHE IS AWARE OF CONSULT, BUT WAS UNAWARE OF DR. ALBERTO'S DICTATION STATING PLAN OF DC TO ASSISTED LIVING OR HOME W/ DAUGHTER. I UPDATED HER. SHE HAS BEEN IN CONTACT W/ PT'S DAUGHTER BUT HAD DISCUSSED PSYCH PLACEMENT W/ HER NOT REALIZING HOLD WAS DC'ED & THE ABOVE PLAN FOR DISCHARGE BY PSYCHIATRY.
--- NOTE | 2020-06-12 12:51 | NUR ---
PT GIVEN LUNCH TRAY. PT DENIES ANY CHANGE. PT REMAINS UNCHANGED FROM INITIAL ASSESSMENT. PT IN VIEW OF THE NURSE STATION, SI PRECAUTIONS REMAIN IN PLACE. PT AWAITING REEVAUATION BY DR MCCAIN. PT AWARE.
--- NOTE | 2020-06-12 13:27 | NUR ---
COMMUNITY CHEST OFFICER AT THE BEDSIDE DISCUSSING PLAN OF CARE TO PT. PER COMMUNITY CHEST OFFICER, PT WANTS TO GO HOME WHERE SHE LIVES WITH HER DAUGHTER BUT WOULD LIKE A FURTHER ALF PLACEMENT. COMMUNITY CHEST OFFICER ON THE PHONE WITH PT DAUGHTER.
--- NOTE | 2020-06-12 13:31 | NUR ---
PER TIGHT ROPE WALKER YUE, DAUGHTER WILL NOT BE ABLE TO CARE FOR PT AT HOME BUT IS WILLING TO TRANSPORT PT TO A FACILITY WIHT DIRECTOR OF ANALYTICS CARE. YUE WILL CALL SOME FACILITIES TO SEE WHERE PT WILL BE ACCEPTED AND WILL LET ME KNOW SO WE CAN CALL THE DAUGHTER TO HOME VISITS NURSE PT WHEN DISCARGED.
--- NOTE | 2020-06-12 15:44 | NUR ---
PT NOTED WATCHING TELEVISION, SITTING IN ER GUERNEY ON POSITION OF COMFORT IN ER GUERNEY. PT GIVEN WATER. PT IS AAOX4, NO DISTRESS NOTED, RESP E/U. PTIS CALM AND COOPERATIVE, DENIES ANY SI/HI. PT AWAITING PLACEMENT. PT AWARE. PT IN VIEW FO THE NURSE STATIONS, SI/HI AND SAFETY PRECAUTIONS IN PLACE. WILL CONT TO MONITOR. VSS.
--- NOTE | 2020-06-12 16:43 | NUR ---
MD NEWMAN AT THE BEDSIDE DISCUSSING PLAN OF CARE TO PATIENT.
--- NOTE | 2020-06-12 17:05 | NUR ---
REMOVED URINARY EPSTEIN AND GAVE PT NEW UNDERWEAR AND ASSISTED PT TO CLEAN HERSELF.
--- NOTE | 2020-06-12 17:32 | NUR ---
PT GIVEN DINNER TRAY.
--- NOTE | 2020-06-12 18:30 | NUR ---
PT ATE 75% DINNER AND 60ML. PT IN POSITION OF COMFORT WATCHING TELEVISION. PT DENIES ANY COMPLAINTS AT THIS TIME. PT IS AAOX4, CALM COOPERATIVE, NO DISTRESSF NOTE, RESP E/U, PT IN VIEW OF THE NURSE STATION, PT DENIES ANY SI/HI.
--- NOTE | 2020-06-12 19:52 | NUR ---
REPORT GIVEN TO JERMAINE FARLEY, FOR CONTINUITY OF CARE
--- NOTE | 2020-06-12 20:05 | NUR ---
LEFT HAND IV WITH S/S OF INFILTRATION WHEN FLUSHED WITH NORMAL SALINE. PT C/O OF HAVING PAIN TO HAND AND SWELLING NOTED WHEN FLUSHED. NEW IV WAS PLACED TO RIGHT FA. PT A&OX4,NO ACUTE DISTRESS NOTED, RESP EVEN AND UNLABORED. PT STATED SHE JUST WISHES TO BE ABLE TO TAKE A SHOWER BEFORE SHE GETS TRANSFERRED TO A CUSTODIAL CARE FACILITY. PT STATED SHE WAS ABLE TO DO SELF CARE IN THE RESTROOM EARLIER TODAY.
[2020-06-12] MEDS ORDERED: ZYPREXA2.5 M1 (23:37)
[2020-06-12] MEDS ORDERED: PROPRANOLOL HCL10 MG (23:38)
--- NOTE | 2020-06-12 23:55 | NUR ---
GAVE REPORT TO SHIELA FARLEY TO ASSUME CARE OF PT.
--- NOTE | 2020-06-13 00:10 | NUR ---
RECEIVED PT FROM ED VIA [facility], CAME IN DUE TO LEXAPRO OVERDOSE. AAOX4. DENIES HEADACHE/DIZZINESS. NO SOB NOTED, LUNG SOUNDS CTA. DENIES CHEST PAIN/PRESSURE, SR ON THE MONITOR. DENIES ABDOMINAL DISCOMFORT. VOIDS. 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 PT HAS SEVERE JERKY AND UNCONTROLLABLE BODY MOVEMENTS. PT STATED THAT SHE FEELS DEPRESSED BUT DENIES SUICIDAL IDEATION. IV SITE PATENT AND INTACT. SIDE RAILS UPX2. CALL LIGHT ON REACH. PRIMARY NURSE SHIELA FOR CONTINUITY OF CARE
--- NOTE | 2020-06-13 00:20 | NUR ---
PT TRANSFERRED TO TELE BED 235A VIA GURNEY ON SURGICAL GARMENT ASSEMBLER WITH MYSELF AND EMT SUAD AT PT SIDE. PT AMBULATED TO TELE BED WITH SLOW AND STEADY GAIT. PT NOTED WITH ECCHYSMOSIS TO TIFFANIE LOWER EXTREMITIES WELL. PT STATES THE BRUISING ON WRISTS AND LEGS ARE FROM POSSIBLEY HITTING HER LIMBS ON THE ED GURNEY WHEN SHE HAS JERKING MOVEMENTS. PT A&OX4, NO ACUTE DISTRESS NOTED, RESP EVEN AND UNLABORED. TRANSFERRED WITHOUT INCIDENCE WITH MARTINE PICKERING AND MARTINE KUO AT PT SIDE.
[2020-06-13 00:52] VITALS: BP 118/69
--- NOTE | 2020-06-13 02:04 | NUR ---
PT;S IN BED WITH EYES CLOSED ,, TELE NSR .
[2020-06-13 05:36] VITALS: BP 105/75
--- NOTE | 2020-06-13 06:28 | NUR ---
IN BED AWAKE NO ACUTE DISTRESS NOTED, TELE NSR , HARRY JAMES.
--- NOTE | 2020-06-13 07:30 | NUR ---
RECEIVED PATIENT IN BED SITTING UP. ALERT AND ORIENTED, SPEECH CLEAR. COSTANT JERKY MOVEMENTS NOTED, DYSKINETIC MOVEMENTS. ASSISTED UP TO TH E BATHROOM AT THIS TIME. VERY UNSTEADY. SCABS AND ABRASION NOTED ON LEFT ELBOW. HL RT FA PATENT. RESP EVEN AND UNLABORED, LUNGS DIMINISHED. NO SOB OR COUGH NOTED. CALL LIGHT WITHIN REACH AND BED ALARM ON, BED IN LOW POSITION AND LOCKED. WILL CONTINUE TO MONITOR.
[2020-06-13 09:02] VITALS: BP 114/80
[2020-06-13 13:00] VITALS: BP 104/72
--- NOTE | 2020-06-13 13:02 | NUR ---
PATIENT SITTING UP IN BED, C/O HAVING SEVERE ANXIETY, AND REQUESTED MEDICATION FOR IT. MEDICATED WITH XANAX ORDEED. WILL CONTINUE TO MONITOR.
--- NOTE | 2020-06-13 14:38 | NUR ---
PATIENT SITTING UP IN BED, AWAKE AND ALERT, MOVING ABOUT IN BED. NO FURTHER C/O ANXIETY AT THIS TIME.
--- NOTE | 2020-06-13 17:29 | NUR ---
DR SUÁREZ INTO SEE PATIENT AT THIS TIME. PATIENT REMAINS IN BED, AWAKE AND ALERT. APPEARS LESS ANXIOUS AND AGITATED AFTER TAKING XANAX. ASSISTED UP TO THE BATHROOM PRN, BUT REQUIRES ASSIST DUE TO VERY UNSTEADY GAIT. NO ACUTE DISTRESS NOTED. WILL CONTINUE TO MONITOR.
--- NOTE | 2020-06-13 18:15 | NUR ---
PATIENT ASSISTED UP TO THE BATHROOM AND BACK IN BED. TOLERATING DIET WELL. REMAINS CALM AND COOPERATIVE AT THIS TIME. NO ACUTE DISTRESS NOTED. WILL CONTINUE TO MONITOR.
[2020-06-13 19:55] VITALS: BP 98/57
--- NOTE | 2020-06-13 20:00 | NUR ---
RECEIVED PT AWAKE ALERT AND ORIENTED. VERY SPASTIC JERKY MOVEMENTS CONTINUOUSLY. VERY PLEASANT AND AWARE OF HER NEEDS. IV TO RFA PATENT AND SALINE LOCKED. WILL ADMINISTER ROCEPHIN NOW PER ORDERS. RA,NO REPIRATORY DISTRESS NOTED. WATCHING TV, SPRITE GIVEN PER PT REQUEST. REQUESTING XANAX, NOT DUE UNTIL 2100. CALL LIGHT WITHIN REACH. BED LOW AND ALARM PLACED. REQUESTED SHE CALL FOR ASSIST WHEN GETTING OOB. VERBALIZED UNDERSTANDING.
--- NOTE | 2020-06-14 | NUR ---
PAGED DR. RODRIGUEZ FOR A SLEEPING PILL PER PT REQUEST. SHE IS CONTINUOUSLY SPASTIC WITH AGGRESSIVE JERKY MOVEMENTS. BANGED HER ELBOW DURING ONE OF THESE SPASMS AND CREATED A SKIN TEAR TO LEFT ELBOW. BLEEDING. PIC TAKEN AND DOCUMENTED. CLEANSED WITH NS PATTED DRY AND PLACED DRESSING. PADDED SIDE RAILS WELL. AWAITING RETURN CALL
--- NOTE | 2020-06-14 00:15 | NUR ---
DR. RODRIGUEZ CALLED BACK AND NEW ORDERS FOR BASILIO CARRIED OUT.
[2020-06-14 04:40] VITALS: BP 107/64
--- NOTE | 2020-06-14 05:01 | NUR ---
ASSISTED TO THE BATHROOM. PT IS VERY UNSTABLE DUE TO MUSCLE SPASMS. HAD TO REALLY HOLD AND HELP KEEP FROM FALLING OVER IN THE BATHROOM WHILE GETTING ON THE TOILET. COMMODE OVER TOILET FOR EASIER ACCESS. FIXED AND REPLACED TELE 3X. EVEN AFTER AMBIEN GIVEN, PT NOT ABLE TO SLEEP MUCH AT ALL. CALL LIGHT WITHIN REACH
--- NOTE | 2020-06-14 08:15 | NUR ---
RECEIVED PT FROM NIGHT NURSE. AAOX4. AWAKE, RESTING COMFORTABLY. SPASTIC MOVEMENTS NOTED, SECONDARY TO HUNTINGTONS DISEASE. NO DIFFICULTY SWALLOWING. PT AMBULATORY WITH UNSTEADY GAIT. PT INSTRUCTED TO SEEK ASSISTANCE FOR AMBULATION. CURRENTLY ON ROOM AIR WITH SAO2 . NO ACUTE DISTRESS NOTED. WILL CONTINUE TO MONITOR.
[2020-06-14 08:40] VITALS: BP 104/77
[2020-06-14 12:24] VITALS: BP 98/70
[2020-06-14 17:46] VITALS: BP 105/69
[2020-06-14 17:48] VITALS: BP 105/69
--- NOTE | 2020-06-14 19:20 | NUR ---
IV ACCESS IN RFA BECAME PAINFUL TO PT. NEW ACCESS WAS INITIATED IN LFA, 22 G. PT STILL PRESENTS WITH COARSE TREMOR. PT EXPRESSES SADNESS ABOUT SITUATION WITH DAUGHTER. C/O ANXIETY AND TREATED WITH XANAX ORDERED PRN. NO ACUTE CHANGES OR DISTRESS THROUGHOUT SHIFT. AWAITING PLACEMENT WITH SNF. WILL ENDORSE TO CARE OF NIGHT NURSE.
--- NOTE | 2020-06-14 20:01 | NUR ---
RECEIVED IN BED AWAKE, ASSESSMENT COMPLETE PLAN OF CARE REVIEWED CALL LIGHT IN REACH GUADALUPE CONTINUE TO MONITOR AND ASSESS
--- NOTE | 2020-06-14 23:46 | NUR ---
RESTING WELL CALL LIGHT IN REACH WILL CONTINUE TO MONITOR AND ASSESS
--- NOTE | 2020-06-15 04:22 | NUR ---
NO SIGNIFICANT CHANGES NOTED AT THIS TIME ALL NEEDS ANTICIPATED AND MET
[2020-06-15 06:45] VITALS: BP 100/65
[2020-06-15 08:41] VITALS: BP 103/75
--- NOTE | 2020-06-15 08:45 | NUR ---
RECEIVED PT FROM NIGHT NURSE. PT HAS VERY UNSTEADY GAIT. ASKED TO REQUEST ASSISTANCE FOR AMBULATION. PT VERBALIZED UNDERSTANDING. DENIES ANXIETY. HR VARIES FROM NSR TO TACHYCARDIA <110 BPM. NO ACUTE DISTRESS NOTED. ALL IMMEDIATE NEEDS MET. WILL CONTINUE TO MONITOR.
[2020-06-15 11:55] VITALS: BP 100/60
[2020-06-15 16:14] VITALS: BP 102/63
--- NOTE | 2020-06-15 19:13 | NUR ---
RECEIVED XANAX @1310 FOR ACUTE ANXIETY AND WAS EFFECTIVE. NO SIGNIFICANT CHANGES OR ACUTE DISTRESS THROUGHOUT SHIFT. AWAITING PLACEMENT AT SNF. ENDORSED CARE TO NIGHT NURSE.
--- NOTE | 2020-06-15 19:46 | NUR ---
PT AAOX4 LYING IN BED WATCHING TV. TELEMONITOR IN USE. NSR-ST NOTED. PULSES PRESENT. NO EDEMA NOTED. LUNG SOUNDS CLEAR. SATS ON RA WNL. BOWEL SOUNDS PRESENT. LAST BM 06/14. VOIDS PER BATHROOM WITH ASSIST. GENERALIZED WEAKNESS NOTED. SPATIC, JERKY MOVEMENTS NOTED. ABRASIONS/SCABS NOTED TO THE UPPER/LOWER EXTREMETIES. SKIN TEAR NOTED LEFT ELBOW. DENIES PAIN. 22G NOTED TO LFA CDI;PATENT. LABS WNL. SAFETY MAINTAINED. BED IN LOWEST POSITION. CALL LIGHT WITHIN REACH. WILL CONTINUE TO MONITOR.
[2020-06-15 20:55] VITALS: BP 113/69
--- NOTE | 2020-06-15 23:39 | NUR ---
PT RESTING COMFORTABLY. TOLERATED PM MEDS WELL. NO DISTRESS NOTED. SAFETY MAINTAINED. WILL CONTINUE TO MONITOR.
--- NOTE | 2020-06-16 05:15 | NUR ---
PT REST WELL THROUGHOUT. TOLERATED MEDS WELL. TELEMONITOR IN USE NSR NOTED. SAFETY MAINTAINED. WILL CONTINUE TO MONITOR.
[2020-06-16 06:01] VITALS: BP 102/67
--- NOTE | 2020-06-16 07:30 | NUR ---
RECEIVED PT FROM NIGHT NURSE. AAOX4. PT DENIES PAIN. CHRONIC ANXIETY BUT DENIES AT THIS TIME. NO ACUTE ISSUES OR DISTRESS. BARRY'S DISEASE RELATED COARSE TREMORS. AMBULATORY BUT NOT STEADY, NEEDS ASSISTANCE. INSTRUCTED TO SEEK ASSISTANCE AND VERBALIZED UNDERSTANDING. WILL CONTINUE TO MONITOR.
[2020-06-16 08:17] VITALS: BP 110/89
[2020-06-16 11:40] VITALS: BP 115/69
[2020-06-16 11:44] VITALS: BP 98/62
[2020-06-16 16:15] VITALS: BP 105/72
--- NOTE | 2020-06-16 19:42 | NUR ---
PT AAOX4 SITTING UPRIGHT IN BED. TELEMONITOR IN USE. PULSES PRESENT. NO EDEMA NOTED. LUNG SOUNDS CLEAR. ON RA SATS WNL. BOWEL SOUNDS PRESENT. LAST BM 06/14. VOIDS WITH ASSIST TO BATHROOM. GENERALIZED WEAKNESS. SPASTIC JERKY MOVEMENTS NOTED. SCABS/ABRASION NOTED BUE & BLE. SKIN TEAR NOTED LEFT ELBOW. DENIES PAIN. 22 G LFA SALINE LOCKED. SAFETY MAINTAINED. WILL CONTINUE TO MONITOR.
--- NOTE | 2020-06-16 19:54 | NUR ---
NO SIGNIFICANT CHANGES OR EVENTS. AWAITING SNF PLACEMENT. SPOKE WITH DAUGHTER ON PHONE FOR PT UPDATE. ENDORSED TO NIGHT NURSE.
[2020-06-16 22:32] VITALS: BP 110/74
--- NOTE | 2020-06-17 05:47 | NUR ---
PATIENT RESTED WELL THROUGHOUT THE NIGHT. NO DISTRESS NOTED. NO C/O PAIN. TOLERATED PO MEDS WELL. SAFETY MAINTAINED. WILL CONTINUE TO MONITOR.
[2020-06-17 07:08] VITALS: BP 104/74
--- NOTE | 2020-06-17 07:21 | NUR ---
RECEIVEV PT FROM CHARCOAL UNLOADER RN. AOX4 ABLE TO MAKE NEEDS KNOWD, DENIES WALLACE/DIZZINESS. TELE 1 NSR/ST. DENIES CP.LUNGS CTA, THEN SOB/COUGH, RESPIRATIONS E/U, ON RA. ABDOMEN SOFT/ROUND, DENIES N/V/D. VOIDS FREELY. PT HAS HX OF HUNTINGTONS DISEASE, SPASTIC, JERKY MOVEMENTS NOTED. SCABS TO BUE AND BLE. SKIN TEAR TO L ELBOW. PT C/O ANXIETY, WILL MEDICATE NEEDED. IV TO LFA 22G IN PLACE, FLUSHED WELL. CALL LIGHT IN REACH, WILL CONTINUE TO MONITOR.
[2020-06-17 08:30] VITALS: BP 104/70
--- NOTE | 2020-06-17 09:22 | NUR ---
PT MEDICATED WITH XANAX FOR VERBALIZING ANXIETY.
[2020-06-17 12:56] VITALS: BP 111/73
[2020-06-17 17:26] VITALS: BP 102/64
--- NOTE | 2020-06-17 22:11 | NUR ---
57 yr female received from am shift in stable condition with 0 s/s of distress noted during walk through. Patient had equal and even chest rise and verbalized no distress. Patient is A&Ox4 is able to make needs known. Patient is being monitored for excessive diarrhea and tested positive for D-diff. RN changed the resident and collected the peding stool sample. Patient was also cooperative and received schedule 2100 meds and tolerated the procedure well. Will Continue to monitor the patient throughout the shift for any changes of condition.
--- NOTE | 2020-06-17 22:20 | NUR ---
45 yr received during walk through with AM shift in stable condition and was manifesting 0 s/s of distress. Patient is A&Ox4 able to make needs. Patient was cooperative during assessment and did not express any s/s of a depressed mood and was in good spirts talking to RN about pending placement to a half-way care facility. Patient is being monitored for recent OD where patient took 30 lexapro. Will continue to monitor the patient throughout the shift for any changes.
[2020-06-18 06:03] VITALS: BP 101/72
--- NOTE | 2020-06-18 06:28 | NUR ---
Patient is currently stable and all needs have been met. Patient appears to be in good spirts and follow up care will be differed to am shift for continuity of care.
--- NOTE | 2020-06-18 07:40 | NUR ---
RECEIVED REPORT FROM CRAYON PAINTER RN. PT LAYING IN BED AND ASLEEP AT THIS TIME, NO ACUTE DISTRESS NOTED. ON TELE 1, NSR. NO CP AND PRESSURE NOTED. PULSES +, - EDEMA AT THIS TIME. ON RA, NO SOB OR COUGHING NOTED AT THIS TIME. NO N/V/D OR ABD DISCOMFORT NOTED. PT HAS SCABS AND ABRASIONS TO BUE, DRY AND FIONA. NO PAIN NOTED AT THIS TIME. IV ON LFA PATENT AND INTACT, SALINE LOCEKED. CALL LIGHT WITHIN REACH. BED IN LOWEST POSITION.
--- NOTE | 2020-06-18 09:23 | NUR ---
REASSESSED PTS MOOD, PT SITTING UP IN BED, NO ACUTE DISTRESS NOTED AT THIS TIME. PT STATED SHE SLEPT WELL AND SHE FELT "GOOD" WHEN SHE WOKE UP TODAY. NO SI OR THOUGHTS OF HARMING OTHERS NOTED. CALL LIGHT WITHIN REACH.
[2020-06-18 14:02] VITALS: BP 97/61
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
--- NOTE | 2020-06-18 15:34 | NUR ---
1. Continue with regular diet as tolerate
--- NOTE | 2020-06-18 16:31 | NUR ---
SPOKE WITH [facility] MORRIS AND CLARIFIED PATIENT'S PLACEMENT. WILL CONFIRM WITH DR. DONNELLY AND CHANGE SS REQUEST FOR SERVICE ONCE COMMUNICATED WITH
--- NOTE | 2020-06-18 17:01 | NUR ---
SPOKE WITH DR. DONNELLY ON THE TELEPHONE TO CLARIFY PTS SS REQUEST FOR SERVICE. CHANGED FOR SNF PLACEMENT. ALSO CALLED [facility] AND SPOKE WITH ADRIA REGARDING THIS CHANGE SINCE [facility] IS UNAVAILABLE AT THIS TIME. STATED SHE WILL RELAY IT TO [facility] IN THE AM.
[2020-06-18 17:59] VITALS: BP 110/75
--- NOTE | 2020-06-18 18:21 | NUR ---
PT LAYING IN BED AND WATCHING TV, NO ACUTE DISTRESS NOTED AT THIS TIME. PT C/O ANXIETY X2, GAVE XANAX X2 AND GAVE PT RELIEF. NO SI THROUGHOUT THE DAY, PTS MOOD IN HIGH SPIRITS THROUGHOUT THE DAY WHEN ASKED HOW SHE WAS FEELING. C/O PAIN ON BUTTOCKS, GAVE TYLENOL X1 IN THE AM. PT STATED RELIEF. EXHIBITED SPASTIC AND JERKY MOVEMENTS. ABLE TO AMBULATE TO RESTROOM INDEPENDENTLY. DR. CHILDS SPOKE TO PT AND AWAITING FOR SNF PLACEMENT. CALL LIGHT WITHIN REACH. BED IN LOWEST POSITION. WILL ENDORSE TO DERMATOLOGY PHYSICIAN RN.
[2020-06-18 20:42] VITALS: BP 120/80
--- NOTE | 2020-06-18 21:16 | NUR ---
Patient was received from am shift with 0 s/s of distress noted. Patient was in good spirits and cooperative during assessment and during med pass. Patient will continue to be monitored throughout the shift.
--- NOTE | 2020-06-18 22:15 | NUR ---
PUT ORDER FOR JERE FARLEYORACLE [facility] DEVEL[facility],CARDIZEM 30 MG PO Q 6 HRS ,HOLD MED IF HR LESS THAN 70.
[2020-06-19 06:00] VITALS: BP 101/73
--- NOTE | 2020-06-19 06:05 | NUR ---
Patient is sleeping and has 0 s/s of distress at this time. Patient remained stable throughout the shift cooperative and in a good mood. Patient DC is pending placement to SNF. Further care willbe differed to am shift for continuity of care.
--- NOTE | 2020-06-19 08:29 | NUR ---
PT A/O X 4 SPASTIC MOVEMENTS, CALM AND COOPERATIVE. STANDARD PRECAUTIONS DX TIFFANIE PNA. ON ROOM 98 SPO2. TELE MONITOR 1 NSR. DENIES ANY CHEST OR OTHER PAIN AT THIS TIME. BED IN LOWEST CKED POSITION, BED RAILS RAISED X 2, AND CALL LIGHT WITHIN REACH. ALL QUESTIONS AND CONCERNS WERE ADDRESSED AT THIS TIME.
[2020-06-19 09:12] VITALS: BP 123/70
[2020-06-19 12:21] VITALS: BP 116/80
--- NOTE | 2020-06-19 12:51 | NUR ---
PT IS RESTING, SITTING UP IN BED WITH LEGS CROSSED. IN NAD AND DENIES CHEST AND ANY OTHER PAIN. ON ROOM AIR SAT 98-100. ALL QUESTIONS AND CONCERNS WERE ADDRESSED AT THIS TIME. BED LOCKED IN LOWEST POSITION, BED RAILS UP X 2, AND CALL LIGHT WITHIN REACH.
[2020-06-19 16:08] VITALS: BP 100/70
[2020-06-19 18:40] VITALS: BP 115/76
--- NOTE | 2020-06-19 19:26 | NUR ---
PATIENT REMAINED STABLE THROUGHOUR SHIFT. SITTING BED SIDE CALM AND IN NAD. DENIES ANY CHEST OR OTHER PAIN. ON ROOM AIR 95 SPO2. BED LOCKED, LOWEST POSITION, BED RAILS RAISED X 2, AND CALL LIGHT WITHIN REACH. REPORT GIVEN TO SET UP MOLD TECHNICIAN NURSE. ALL QUESTIONS AND CONCERNS WERE ADDRESSED. ALL CARE HAS BEEN ENDORSED.
--- NOTE | 2020-06-19 20:14 | NUR ---
RECEIVED PT IN BED RESTING COMFORTABLY. AWAKE, A/O X4 ABLE TO MAKE NEEDS KNOWN, ABLE TO FOLLOW COMMANDS, SPEECH CLR, NO WALLACE OR DIZZINESS. LUNG SOUNDS DIM AT BASES, DENIES COUGH AND SOB. ON TELE 1, NO C/O CHEST PAIN AT THIS TIME. RADIAL AND PEDAL PULSES PRESENT, NO EDEMA NOTED. SKIN IS WARM , DRY AND INTACT. NO IV ACCESS. PT AMBULATORY, HAS HX OF BARRY'S A,D NOTICED WITH SLIGHT INVOLUNTARY MOVEMENTS. PT DENIES DTS AND DTO. BED TO LOWEST POSITION, CALL LIGHT WITHIN REACH, WILL CONT TO MONITOR FOR CHANGES IN CONDITION.
[2020-06-19 20:58] VITALS: BP 105/62
--- NOTE | 2020-06-20 05:16 | NUR ---
PT IN BED RESTING COMFORTABLY. NO C/O PAIN, NO ACUTE DISTRESS NOTED. RESP IS EVEN AND ULABORED. NEEDS ATTENDED AND MET, FRWQUENT VISUAL MONITORING RENDERED. CALL LIGHT WITHIN REACH BED TO LOWEST POSITION, WILL CONT TO MONITOR FOR CHANGES IN CONDITION AND NEDORSE TO NEXT SHIFT NURSE.
[2020-06-20 05:19] VITALS: BP 106/76
--- NOTE | 2020-06-20 07:29 | NUR ---
RECIVED REPORT FROM TILE LAYER NURSE. PT IS A/O X 4. WAS SLEEPING IN LOW FOWLERS POSITION. IN NAD AND DENIES CHEST OR ANY PAIN. TELE MONITOR 1 NSR. ON ROOM AIR 96 SPO2. NO IV ACCESS. BED IN LOCKED, LOWEST POSITION, ARM RAILS RAISED X 2, AND CALL LIGHT WITHIN REACH. ALL QUESTIONS AND CONCERNS WERE ADDRESSED.
[2020-06-20 08:52] VITALS: BP 97/69
--- NOTE | 2020-06-20 10:23 | NUR ---
PATIENT COMPLAINING OF WALLACE 6/10 IN PAIN SCALE. REQUESTING TYLENOL. GAVE ICE PACK AND TYLENOL. PT IN BED LOWEST POSITION, BED LOCKED, ARM RAILS RAISED X 2, AND CALL LIGHT WITHIN REACH. IN NAD AND SITTING WITH LEGS CROSSED IN BED. ALL QUESTIONS AND CONCERNS WERE ADDRESSED.
--- NOTE | 2020-06-20 10:57 | NUR ---
DR. DONNELLY AWARE THAT PATIENTS BP: 97/69 AND HR 100. PT IN NAD, DENIES ANY CHEST OR OTHER PAIN. BED IS LOCKED IN LOWEST POSITION, ARMS RAILS RAISED X 2, AND CALL LIGHT WITHIN REACH. ALL QUESTIONS AND CONCERNS WERE ADDRESSED AT THIS TIME.
--- NOTE | 2020-06-20 11:21 | NUR ---
RE-EVALUATED PAIN FOR WALLACE. PATIENT DENIES PAIN 0/10 PAIN SCALE. RESOLVED WALLACE. PATIENT IN NAD. SITTING COMFORTABLY IN BED. NO SOB NOTED. DENIES CHEST PAIN. BED LOCKED, LOWEST POSTIION, ARM RAILS RAISED, CALL LIGHT WITHIN REACH. ALL QUESTIONS AND CONCERNS HAVE BEEN ADDRESSED AT THIS TIME.
[2020-06-20 12:23] VITALS: BP 101/71
--- NOTE | 2020-06-20 13:48 | NUR ---
PATIENT IN NAD. NO APPARENT PAIN. SLEEPING COMFORTABLY IN LOW FOLERS POSITION. NO SOB NOTED. BED LOWEST POSITION, LOCKED, BED RAILS RAISED X 2, CALLL LIGHT WITHIN REACH. ALL CONCERNS MET AT THIS TIME.
[2020-06-20 16:54] VITALS: BP 105/74
--- NOTE | 2020-06-20 17:00 | NUR ---
PATIENT C/O ANXIOUSNESS, IN NAD. DENIES ANY CHEST PAIN OR OTHER PAIN. REQUESTING XANAX. GIVEN MEDICATION, PT RESTING COMFORTABLY SITTING WITH LEGS CROSSED ON TOP OF BED. BED IN LOWEST POSITION, LOCKED, ARM RAILS RAISED, AND CALL LIGHT WITHIN REACH. ALL QUESTIONS AND CONCERNS HAVE BEEN ADDRESSED.
[2020-06-20 18:10] VITALS: BP 108/78
--- NOTE | 2020-06-20 19:01 | NUR ---
PATIENT REMAINED STABLE THROUGHOUT SHIFT. IN NAD AND DENIES CHEST OR ANY PAIN. ON ROOM AIR AND 96-100 SPO2. ON TELE 1 NSR. BED IN LOWEST LOCKED POSTIIN, ARM BARS RAISED, AND CALL LIGHT WITHIN REACH. REPORT GIVEN TO [employer] HELPER NURSE. ALL QUESTIONS AND CONCERNS WERE ADDRESSED. ALL CARE HAS BEEN ENDORSED.
--- NOTE | 2020-06-20 19:50 | NUR ---
PT IN BED RESTING COMFORTABLY AWAKE. A/O X4 ABLE TO FOLLOW COMMANDS, ABLE TO MAKE NEEDS KNOWN, SPEECH CLR, SOME INVOLUNTARY BODY MOVEMENT OBSERVED. LUNG SOUND DIM AT BASES, RESP EVEN AND UNLABORED, NO COUGH NO SOB ON RA. RADIAL AND PEDAL PULSES PRESENT NO EDEMA NOTED. ON TELE 1, NO C/O CHEST PAIN AT THIS TIME. SKIN IS WARM DRY AND INTACT. ABLE TO AMBULATE TO THE INDEPENDENTLY, JOINTS INTACT, FULL ACTIVE ROM. BED TO LOWEST POSITION, CALL LIGHT WIHTIN REACH, WILL CONT TO MONITOR.
[2020-06-20 20:31] VITALS: BP 111/69
[2020-06-21 02:17] VITALS: BP 174/111
[2020-06-21 05:30] VITALS: BP 101/73
--- NOTE | 2020-06-21 07:04 | NUR ---
PT IN BED AWAKE, A/O X4 ABLE TO FOLLOW COMMANDS, ABLE TO MAKE NEEDS KNOWN, NO C/O PAIN, NO ACUTE DISTRESS NOTED. RESP IS EVEN AND UNLABORED, NEEDS ATTENDED AND MET, FREQUENT VISUAL MONITORING RENDERED, WILL ENDORSE CARE TO NEXT SHIFT NURSE.
--- NOTE | 2020-06-21 07:50 | NUR ---
REC'D PT FROM HEALTH EVALUATOR. AAOX4 SITTING AT EDGE OF BED EATING BREAKFAST. NSR ON TELE 1. NO C/O DYSPNEA OR PAIN. PT STATES LBM 2/4. PT IS ABLE TO AMBULATE TO BATHROOM. HAS INVOLUNTARY MOVEMENT R/T DX OF BARRY'S. SKIN INTACT. NO IV ACCESS. CALL LIGHT WITHIN REACH. SAFETY MEASURES IN PLACE. WILL CONTINUE TO MONITOR.
[2020-06-21 08:10] VITALS: BP 100/71
--- NOTE | 2020-06-21 09:35 | NUR ---
PT STATES NECK PAIN 11/23. MEDICATED WITH TYLENOL. WILL REASSESS EFFECTIVENESS.
--- NOTE | 2020-06-21 10:22 | NUR ---
PT SLEEPING IN BED. CALL LIGHT WITHIN REACH. SAFETY MEASURES IN PLACE. WILL CONTINUE TO MONITOR.
--- NOTE | 2020-06-21 10:35 | NUR ---
PT APPEARS TO BE SLEEPING. NO FURTHER C/O FEELING ANXIOUS OR PAIN AT THIS TIME. WILL CONTINUE TO MONITOR.
[2020-06-21 12:04] VITALS: BP 118/78
[2020-06-21 15:53] VITALS: BP 115/66
--- NOTE | 2020-06-21 16:54 | NUR ---
PT STATES PAIN 10/24. MEDICATED WITH TYLENOL. WILL REEVALUTE EFFECTIVENESS.
--- NOTE | 2020-06-21 17:54 | NUR ---
PT STATES PAIN RELIEF 0/10. WILL CONTINUE TO MONITOR.
--- NOTE | 2020-06-21 18:00 | NUR ---
PT STATES FEELING ANXIOUS. MEDICATED WITH XANAX. CALL LIGHT WITHIN REACH, SAFTEY MEASURES IN PLACE. NO ADN. WILL ENDORSE TO [employer] A[employer]LYT[employer] LEAD.
[2020-06-21 19:35] VITALS: BP 111/72
--- NOTE | 2020-06-21 19:47 | NUR ---
PT RECEIVED FROM AM NURSE. PT SEEN SITTING UP IN BED. NO ACUTE RESP DISTRESS NOTED, BREATHING EVEN AND UNLABORED, DENIES ANY SOB. DENIES ANY CP/PRESSURE AT THIS TIME, ST ON TELE#1. PULSES PALPABLE. BS+. VOIDS FREELY. AMBULATORY, UNSTEADY GAIT. ALL SAFETY PRECAUTIONS IN PLACE. WILL CONT TO MONITOR.
--- NOTE | 2020-06-21 21:06 | NUR ---
PT STATES SHE WOULD LIKE TO SPEAK TO DOCTOR ABOUT BEING DISCHARGED TOMORROW
--- NOTE | 2020-06-21 23:55 | NUR ---
PT SEEN SITTING IN BED. C/O RESTLESSNESS AND WANTS SOMETHING TO HELP SLEEP. GIVEN AMBIEN PER EMAR. NO ACUTE RESP DISTRESS, BREATHING EVEN AND UNLABORED. DENIES ANY CP/PRESSURE AT THIS TIME. ALL SAFETY PRECAUTIONS IN PLACE. WILL CONT TO MONITOR.
--- NOTE | 2020-06-22 06:53 | NUR ---
PT RESTING IN BED. NO ACUTE RESP DISTRESS NOTED, BREATHING EVEN AND UNLABORED. DENIES ANY CP/PRESSURE AT THIS TIME. ALL PT NEEDS MET OVERNIGHT. ALL SAFETY PRECAUTIONS IN PLACE. WILL ENDORSE ALL CARE TO ONCOMING NURSE.
[2020-06-22 07:49] VITALS: BP 118/69
--- NOTE | 2020-06-22 11:30 | NUR ---
PATIENT SHOWERED THIS MORNING. CLEAN GOWN PROVIDED. NEW TELEMETRY PADS PLACED.
[2020-06-22 11:59] VITALS: BP 101/75
[2020-06-22 15:48] VITALS: BP 123/71
--- NOTE | 2020-06-22 17:15 | NUR ---
PAGESuzanna DON REGARDING PATIENT'S XANAX. ORDER . WANT TO RENEW. PT C/O FEELING VERY ANXIOUS.
--- NOTE | 2020-06-22 19:40 | NUR ---
PATIENT SITTING IN BED, ON ROOM AIR, NO SIGNS OF ACUTE DISTRESS AT THIS TIME, NO CHEST PAIN OR PRESSURE, AAO X4, FOLLOWS COMMANDS AND LETS NEEDS KNOWN, ACTIVE BOWEL SOUNDS X4, VOIDS FREELY, GENERALIZED WEAKNESS, INVOLUNTARY MUSCLE MOVEMENT RELATED TO BARRY'S DISEASE, NO IV ACCESS, BED IN LOWEST POSITION, CALL LIGHT WITHIN REACH, WILL CONTINUE TO MONITOR.
[2020-06-22 20:14] VITALS: BP 102/70
--- NOTE | 2020-06-23 00:15 | NUR ---
PATIENT SITTING IN BED, NO COMPLAINTS OF PAIN OR DISCOMFORT AT THIS TIME, NO SIGNS OF ACUTE DISTRESS, BED IN LOWEST POSITION, CALL LIGHT WITHIN REACH, WILL CONTINUE TO MONITOR.
--- NOTE | 2020-06-23 05:31 | NUR ---
NO SIGNS OF ACUTE DISTRESS, NO COMPLAINT OF PAIN AT THIS TIME, BED IN LOWEST POSITION, ALL SAFETY MEASURES WITHIN NORMAL LIMITS, WILL ENDORSE CARE TO ONCOMING NURSE.
[2020-06-23 05:56] VITALS: BP 107/63
--- NOTE | 2020-06-23 08:00 | NUR ---
PATIENT AWAKE AND ALERT. INVOLUNTARY MUSCLE MOVEMENT DUE TO PMH OF BARRY'S. BED LOCKED IN LOWEST POSITION. CALL LIGHT IN REACH. NO IV ACCESS, MD IS AWARE. SATTING WELL IN 90'S ON ROOM AIR. NO SIGN OF DISTRESS. NO C/O PAIN. PATIENT SAID SHE IS FEELING ANXIOUS. SHE WAS INFORMED THAT SHE GOT XANAX FROM THE FIELD SECRETARY NURSE THIS MORNING AROUND 0530 AND CAN ONLY HAVE IT EVERY 8 HOURS SO THE NEXT DOSE WOULD BE 1330. SHE SAID "THAT'S FINE; I CAN WAIT." PATIENT'S RAPID TEST AND PCR WERE BOTH NEGATIVE FOR COVID. INSTRUCTED TO CALL FOR SAFETY AND ANY ASSISTANCE NEEDED. PATIENT VERBALIZED UNDERSTANDING.
[2020-06-23 08:04] VITALS: BP 150/99
[2020-06-23 11:52] VITALS: BP 130/78
[2020-06-23 16:13] VITALS: BP 113/70
[2020-06-23 19:33] VITALS: BP 119/101
--- NOTE | 2020-06-23 19:45 | NUR ---
PATIENT WALKING AROUND IN ROOM, AAO X4, COOPERATIVE AND FOLLOWS COMMANDS, ON ROOM AIR, NO SIGNS OF ACUTE DISTRESS AT THIS TIME, NO COMPLAINTS OF CHEST PAIN OR PRESSURE, ACTIVE BOWEL SOUNDS, LAST BM 06/23/20 REPORTED SOLID, INVOLUNTARY MUSCLE MOVEMENT RELATED TO BARRY'S DISEASE, NO IV ACCESS PER MD ORDER, BED IN LOWEST POSITION, CALL LIGHT WITHIN REACH, WILL CONTINUE TO MONITOR.
--- NOTE | 2020-06-24 02:03 | NUR ---
PATIENT IS SITTING IN BED, ON ROOM AIR, NO SIGNS OF ACUTE DISTRESS AT THIS TIME, NO COMPLAINT OF PAIN, ALL SAFETY MEASURES WITHIN NORMAL LIMITS, WILL CONTINUE TO MONITOR.
--- NOTE | 2020-06-24 04:49 | NUR ---
NO SIGNS OF ACUTE DISTRESS AT THIS TIME, NO C/O PAIN, ALL SAFETY MEASURES WITHIN NORMAL LIMITS, WILL ENDORSE CARE TO ONCOMING NURSE.
[2020-06-24 05:11] VITALS: BP 103/83
--- NOTE | 2020-06-24 08:36 | NUR ---
AT 0805 - RECEIVED PATIENT FROM NIGHT NURSE. AWAKE, ALERT AND ORIENTED X 4. SITTING ON SIDE OF BED; HAS EATEN BREAKFAST. PATIENT REQUESTING ENSURE. WILL FOLLOW-UP WITH DIETITIAN. AMBULATED TO BATHROOM AND BACK TO BED.
[2020-06-24 08:59] VITALS: BP 128/75
--- NOTE | 2020-06-24 09:05 | NUR ---
C/O ANXIETY. MEDICATED WITH XANAX PER EMAR.
--- NOTE | 2020-06-24 09:58 | NUR ---
PATIENT SLEEPING. RESPIRATIONS REGULAR. SPOKE WITH DIETITIN REGARDING NUTRITIONAL SUPPLIMENT PATIENT HAD BEEN ASKING FOR. PATIENT WILL RECEIVE SUPPLIEMNT WITH MEALS.
[2020-06-24] MEDS ORDERED: VENTOLIN H0.09 MG/A1 IH (11:33)
[2020-06-24] MEDS ORDERED: IND10 PO (11:34)
[2020-06-24] MEDS ORDERED: ZYP10 PO (11:34)
[2020-06-24] MEDS ORDERED: DILTIAZEM30 M1 PO (11:34)
[2020-06-24] MEDS ORDERED: AMB5 PO (11:35)
[2020-06-24 12:11] VITALS: BP 101/70
--- NOTE | 2020-06-24 13:15 | NUR ---
TAKEN OFF CARDIAC MONITORING. STATUS CHANGED TO MED-SURG.
[2020-06-24 17:12] VITALS: BP 100/72
--- NOTE | 2020-06-24 18:28 | NUR ---
AWAKE, ALERT AND ORIENTED. AMBULATES IN ROOM. VOIDING IN BATHROOM. ABLE TO MANAGE OWN ADLS. EATING WELL; GOOD APPETITE. VSS. C/O HEADACHE X 2 THIS SHIFT AND RECEIVED TYLANOL PER EMAR. PATIENT IS CALM AND PLEASANT. WILL ENDORSE CARE TO NIGHT NURSE.
--- NOTE | 2020-06-24 19:30 | NUR ---
PT RECEIVED FROM DAY SHIFT. A&O X4. PT IS MED-SURG. STRONG PULSES OF ALLEXREMITIES, NO EDEMA NOTED. CLEAR BREATH SOUNDS ON ROOM AIR, OXYGEN SATURATION ABOVE 95%. ACTIVE BOWEL SOUNDS X4, PT VOIDS, BRP. PT HAS GENEREALIZED WEKANESS BUT IS AMBULATORY. SKIN INTACT. NO C/O OR SIGNS OF PAIN, DISTRESS, OR DISCOMFORT. NO IV ACCESS MD AWARE. BED ON LOWEST LEVEL, CALL LIGHT WITHIN REACH, BED RAILS UP X2. WILL CONTINUE TO MONITOR.
[2020-06-24 21:21] VITALS: BP 106/64
--- NOTE | 2020-06-25 01:03 | NUR ---
PT AWAKE AND RESTLESS. PT C/O OF MUSCLE CRAMPS FROM MENSTRATION, PT GIVEN PRN MEDICATIONS. BED ON LOWEST LEVEL, CALL LIGHT WITHIN REACH, BED RAILS UP X2. WILL CONTINUE TO MONITOR.
[2020-06-25 05:09] VITALS: BP 98/61
--- NOTE | 2020-06-25 05:50 | NUR ---
PT REMAINED AWAKE THROUGH THE MAJORITY OF THE SHIFT, NEEDY, AND ANXIOUS. PT RESTED IN BED WITH EYES CLOSED AT AROUND 0530. PT CONTINUES TO C/O MENSTRAUL CRAMPS, PT GIVEN PRN PAIN MEDICATION. NO SIGNS OF C/O OF DISTRESS. BED ON LOWEST LEVEL, CALL LIGHT WITHIN REACH, BED RAILS UP X2. WILL ENDORSE TO ONCOMING SHIFT.
--- NOTE | 2020-06-25 05:56 | NUR ---
PT REMAINS ON ROOM AIR WITH OXYGEN SATURATION ABOVE 95%.
--- NOTE | 2020-06-25 09:15 | NUR ---
PATIENT HAD A MORNING SHOWER, WAS SITTING UP IN BED, MORNING MEDS GIVEN. PATIENT AOX4, ABLE TO COMMUNICATE NEEDS, HAS NO C/O PAIN OR DISCOMFORT. WILL CONTINUE MONITORING, ALL NEEDS MET FOR NOW.
[2020-06-25 09:20] VITALS: BP 112/81
--- NOTE | 2020-06-25 10:30 | NUR ---
PATIENT C/O HEADACHE AND WAS GIVEN TYLENOL PRN 30 MIN LATER REASSED AND PATIENT STATED PAIN DECREASED. NO OTHER COMPLAINTS AT THIS TIME.
[2020-06-25 12:15] VITALS: BP 105/70
[2020-06-25 18:00] VITALS: BP 141/75
--- NOTE | 2020-06-25 18:36 | NUR ---
PATIENT RAMINED STABLE THROUGH SHIFT, HAD NO SIGNIFICANT CHANGES. PATIENT VITALS ARE STABLE. PATIENT ASKED FOR PRN PAIN MED FOR HEADACHE AND WHEN REASESSED PAIN DECREASED. PATIENT IS ABLE TO COMMUNICATE NEEDS. NO COMPLAINTS AT THIS TIME. WILL ENDORSE REPORT TO PM NURSE.
--- NOTE | 2020-06-25 19:30 | NUR ---
RECEIVED PT FROM DAY SHIFT NURSE, PT IS WALKING AROUND ALERT AND AWAKE. MED SURG, DENIES CP, DIZZINESS, WALLACE, N/V AND PALPITATIONS. PALPABLE PULSES, NO EDEMA NOTED. BREATHING IS EVEN AND UL ON RA, LUNG SOUNDS DIMINISHED. NO SOB OR ACUTE RESPIRATORY DISTRESS NOTED. BOWEL SOUNDS ACTIVE X4, ABD IS SOFT AND ROUND. AMBULATORY AT BASELINE, INVOLUNTARY MOVEMENTS NOTED. NO C/O PAIN OR DISCOMFORT AT THIS TIME. BED IN LOWEST POSITION. CALL LIGHT IS W/IN REACH. WILL CONTINUE TO MONITOR.
[2020-06-25 20:31] VITALS: BP 113/74
--- NOTE | 2020-06-26 00:02 | NUR ---
PT IS RESTING IN BED SLEEPING. NO S/SX OF PAIN OR DISCOMFORT AT THIS TIME. BREATHING REMAINS EVEN AND UL ON RA, NO SOB NOTED. REMAINS IN STABLE CONDITION. BED IN LOWEST POSITION. CALL LIGHT IS W/IN REACH. WILL CONTINUE TO MONITOR.
[2020-06-26 05:37] VITALS: BP 104/69
--- NOTE | 2020-06-26 06:42 | NUR ---
PT IS SITTING IN BED AWAKE AND ALERT. REQUESTING ANXIETY MEDICATION, EXPLAINED TO PT THAT MEDICATION IS NOT DUE YET. PT VERBALIZED UNDERSTANDING. NO C/O PAIN OR DISCOMFORT THROUGHOUT SHIFT. BREATHING REMAINS EVEN AND UL ON RA, NO SOB NOTED. NO SIGNIICANT CHANGES AT THIS TIME, REMAINS IN STABLE CONDITION. ALL NEEDS HAVE BEEN MET. PT AWARE OF PENDING SNF PLACEMENT. BED IN LOWEST POSITION. CALL LIGHT IS W/IN REACH. WILL ENDORSE CARE TO DAY SHIFT NURSE.
--- NOTE | 2020-06-26 07:46 | NUR ---
RECEIVED REPORT FROM ELECTRONICS TEACHER RN. PT SITTING UP IN BED AND EATING BREAKFAST. NO ACUTE DISTRESS NOTED AT THIS TIME. DENIED CP AND PRESSURE. PULSES +, - EDEMA. ON RA, O2 SAT 95%, DENIED SOB AND NO COUGHING NOTED AT THIS TIME. BOWEL SOUNDS +, NO N/V/D NOTED. INVOLUNTARY MOVEMENTS TO BUE NOTED, PT AMBULATORY WITH GEN WEAKNESS. SKIN INTACT. NO IV ACCESS, STATES "I REALLY DON'T THINK I NEED IT SINCE I'LL BE GOING TO THE FACILITY TODAY". EDUCATED ON THE IMPORTANCE OF HAVING IV ACCESS, PT STATED "NO, I'M OKAY". CALL LIGHT WITHIN REACH. BED IN LOWEST POSITION.
[2020-06-26 08:38] VITALS: BP 103/59
--- NOTE | 2020-06-26 11:25 | NUR ---
SPOKE WITH ARTURO TURNER REGARDING UPDATES FOR PTS TRANSFER. STATED THAT PT WILL BE PICKED UP @2PM BY [facility] TO [facility]. PT AND DAUGHTER AWARE. WILL HAVE TRANSFER PAPERS SIGNED AND READY.
[2020-06-26 12:23] VITALS: BP 103/59
[2020-06-26 12:39] VITALS: BP 102/72
--- NOTE | 2020-06-26 14:13 | NUR ---
DAUGHTER JOSUE DROPPED OFF LUGGAGE FOR PT. PT SIGNED DC PAPERS, PROVIDED DC EDUCATION. PT AAOX4, VERBALIZED UNDERSTANDING. HAD NO ADDITIONAL QUESTIONS AT THIS TIME. DENIED PAIN, ON RA. NO SOB OR COUGHING NOTED. PT PICKED UP BY [facility]. ACCOMPANIED PT TO LOBBY WITH TRANSPORT. WALKER WITH PT.
== END 2020-06-26 14:10 | DRG 812 ==
LOC: ED 13:24 → DU 17:32 → ED 17:32 → DU 17:32 → MU 06-24 13:10
PROVIDERS: Emergency Medicine; ADMIT Hospitalist; ATTEND Hospitalist
DX: T43.222A Poisoning by selective serotonin reuptake inhibitors, intentional self-harm, initial encounter (principal); J18.1 Lobar pneumonia, unspecified organism; G10 Huntington's disease; F41.9 Anxiety disorder, unspecified; Z88.8 Allergy status to other drugs, medicaments and biological substances; Y92.89 Other specified places as the place of occurrence of the external cause; Z20.822 Contact with and (suspected) exposure to COVID-19; F32.9 Major depressive disorder, single episode, unspecified
CPT/HCPCS: 36600; 85378; 97110-GP; 97116-GP; 97530-GP; G0378; G0480; J0456; J0696; J2060; J2270; J2543; J7030; J7050; J7060; U0003